=== PATIENT | male | born 1960 | race African-American/Black ===

== ENCOUNTER 2017-12-12 18:16 | Emergency (ER) | payer SELFPAY ==
[~2017-12-12] VITALS: Ht 185.4 cm; Wt 84.5 kg
[2017-12-12] MEDS ORDERED: LIDOCAINE 1%, 10ML INFIL ONE (18:30)
[2017-12-12] MEDS ORDERED: KETOROLAC 30 MG/1 ML ONE ×2 (18:52→18:58)
[2017-12-12] MEDS ORDERED: DIPH,PERTUSS(ACELL),TET VAC/PF 0.5 ML IM-VACC ONE ×3 (18:53→19:08)
[2017-12-12] MEDS ORDERED: LIDOCAINE-MPF 1%, 5ML ONE (18:53)
[2017-12-12] MEDS ORDERED: KETOROLAC 30 MG/1 ML IM ONE (19:00)
[2017-12-12 20:23] VITALS: BP 118/76
[2017-12-12] MEDS ORDERED: BACITRACIN ZINC OINT 500U/GM, 0.9 GM ONE (20:38)
== END 2017-12-12 21:07 | disposition home or self-care (01) ==
LOC: ED 20:45
DX: S01.81XA Laceration without foreign body of other part of head, initial encounter (principal); S43.102A Unspecified dislocation of left acromioclavicular joint, initial encounter; F17.200 Nicotine dependence, unspecified, uncomplicated; V22.4XXA Motorcycle driver injured in collision with two- or three-wheeled motor vehicle in traffic accident, initial encounter; Y93.55 Activity, bike riding; Y92.410 Unspecified street and highway as the place of occurrence of the external cause; Y99.8 Other external cause status
CPT/HCPCS: 12011; 73030; 90471; 90715; 96372; 99284; J1885